=== PATIENT | male | born 1960 | race Caucasian/White ===

== ENCOUNTER → 2017-12-15 | Outpatient (CLI) | payer MEDICARE, BC ==
--- NOTE | 2017-12-15 16:56 | KCIC ---
MRI right knee without contrast dated 12/15/2017 12:00 AM Indication: Right knee pain pain is located medially pain for couple of months history of prior surgery in 2000. Comparison: 06/29/2014. Technique: Routine multiplanar multisequence imaging performed. . Findings: Bone marrow signal is homogeneous. No marrow edema. Mild tricompartmental hypertrophic change with small marginal osteophytes. Thinning and surface irregularity of the articular cartilage throughout. There is full-thickness cartilage loss at the weightbearing surface medial femoral condyle. There is also full-thickness cartilage loss at the trochlear groove and near full-thickness cartilage loss at the patellar apex and lateral patellar facet. Small joint effusion. Small loose bodies at the anterior and posterior joint space measuring up to 5 mm. No significant popliteal cyst. Anterior cruciate and posterior cruciate ligaments intact. Medial and lateral collateral complexes intact. Iliotibial band, popliteus tendon and pes anserine complex within normal limits. Quadriceps and patellar tendon are intact. No abnormality of the medial or lateral retinaculum. There is blunted morphology of the free edge of the medial meniscal body. Anterior horn and posterior horn are otherwise intact. Lateral meniscus is normal in morphology and signal. IMPRESSION: 1. 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 There is full-thickness cartilage loss at the medial and anterior compartments. This has mildly progressed from the prior exam. 2. Small joint effusion with multiple loose bodies in the anterior and posterior joint space. 3. Blunting of the free edge of the medial meniscal body is unchanged from prior exam and likely related to prior partial meniscectomy. Electronically signed by: Reymundo Harper MD (12/15/2017 4:53 PM) [facility]
== END | disposition home or self-care (01) ==
LOC: KCIC MRI 15:33
PROVIDERS: ATTEND Orthopaedic Surgery
DX: M17.11 Unilateral primary osteoarthritis, right knee (principal); M94.261 Chondromalacia, right knee; M24.08 Loose body, other site; M25.461 Effusion, right knee
CPT/HCPCS: 73721

== ENCOUNTER → 2020-05-02 | Outpatient (CLI) | payer BC, MEDICARE ==
[~2020-05-02] MED LIST: ATOR40TA59 PO; CITA20TA6 PO; DOCU-109 PO; FEBU80TA2 PO; HYDR-2759 PO; LEVO112T49 PO; LISI20TA18 PO; METH-38 PO; MULT-496 PO
[2020-05-02 10:00] LABS: ALBUMIN 3.6 g/dL (3.4-5.0); ALBUMIN/GLOBULIN RATIO 1.1 (1.0-1.7); CALCIUM 8.4 mg/dL (8.5-10.1); GFR 76.2; POTASSIUM 4.2 mmol/L (3.5-5.1); TOTAL BILIRUBIN 0.3 mg/dL (0.2-1.0); TOTAL PROTEIN 6.8 g/dL (6.4-8.2)
[2020-05-02 10:17] LABS: BASO % 1 % (0-3); EOS # 0.1 x10^3/uL (0.0-0.7); EOS % 3 % (0-3); HEMATOCRIT 37.3 % (39.0-53.0); HEMOGLOBIN 12.8 g/dL (13.0-17.5); LYMPH # 1.5 x10^3/uL (1.0-4.8); LYMPH % 25 % (24-48); MEAN CORPUSCULAR HEMOGLOBIN 32 pg (25-35); MEAN CORPUSCULAR HGB CONC 34 g/dL (31-37); MEAN CORPUSCULAR VOLUME 94 fL (79-100); MONO # 0.6 x10^3/uL (0.0-1.1); MONO % 10 % (0-9); NEUT # 3.6 x10^3/uL (1.8-7.7); NEUT % 62 % (31-73); PLATELET COUNT 281 x10^3/uL (140-400); RED BLOOD COUNT 3.97 x10^6/uL (4.30-5.70); RED CELL DISTRIBUTION WIDTH 13.3 % (11.5-14.5); WHITE BLOOD COUNT 5.8 x10^3/uL (4.0-11.0)
== END ==
LOC: SURGPAT 08:56
PROVIDERS: ATTEND Neurological Surgery
DX: Z01.812 Encounter for preprocedural laboratory examination (principal); M48.062 Spinal stenosis, lumbar region with neurogenic claudication; M71.30 Other bursal cyst, unspecified site; Z20.822 Contact with and (suspected) exposure to COVID-19; Z79.899 Other long term (current) drug therapy
CPT/HCPCS: 80053; 85025; 87641; U0003

== ENCOUNTER 2020-05-08 10:21 | Day surgery (SDC) | payer MEDICARE ==
[~2020-05-08] VITALS: Ht 177.8 cm; Wt 88.5 kg
--- NOTE | 2020-05-08 06:44 | HP ---
ADMIT DATE: 05/08/2020 DATE OF ADMISSION: 05/08/2020 HISTORY OF PRESENT ILLNESS: The patient is a pleasant 59-year-old man who is having difficulty with low back pain, which is greater on the right side and pain that can radiate into his right greater than left lower extremity. The problem started several months ago spontaneously. His pain varies between 4/10 and 10/10. Mornings and increased activity makes his pain worse. Standing helps. He is taking ibuprofen. He has tried stretches and had a steroid injection without benefit. PAST MEDICAL HISTORY: Gout, hypertension, thyroid disease. CURRENT MEDICATIONS: Lisinopril, levothyroxine, citalopram. PAST SURGICAL HISTORY: Right knee surgery, right rotator cuff surgery. FAMILY HISTORY: Cancer, diabetes, hypertension. SOCIAL HISTORY: Retired stage electrician. Drinks four beers daily. ALLERGIES: CODEINE. REVIEW OF SYSTEMS: A 12-point review of systems was performed and is noncontributory except that mentioned above. PHYSICAL EXAMINATION: GENERAL: Alert, pleasant, in no acute distress. HEAD: Normocephalic, atraumatic. SKIN: Warm and dry. MUSCULOSKELETAL: Lumbar paraspinal muscle bulk is normal, restricted range of motion of the lumbar spine, [id number] tenderness of the lower lumbar spine with palpation, normal range of motion of the lower extremities bilaterally. EXTREMITIES: No clubbing, cyanosis or edema. NEUROLOGIC: Alert and oriented x 3, strength 5/5 in bilateral lower extremities, sensory was intact to light touch in the bilateral lower extremities, reflexes were present and symmetric in the lower extremities bilaterally, negative straight leg raising bilaterally, normal gait. IMAGING: I reviewed a lumbar MRI scan. On that study, there appears to be a synovial cyst based on the right side at L4-L5, which protruded into the spinal canal and is associated with severe spinal stenosis. ASSESSMENT AND PLAN: He has severe lumbar spinal stenosis from a synovial cyst at L4-L5. I recommended a right direct laminectomy with removal of the cyst. I spoke with him about the surgery including the technique, the risk and the expected postoperative course. He understands. He would like to go ahead. Also, a 12-point review of systems was performed and was noncontributory except that mentioned above. JAMES P. IRAIS, MD DR: STUART/deanna JOB#: [id number] / [id number]
[~2020-05-08 10:21] MED LIST changes: +BACITRACIN 50,000 UNIT in IV NORMAL SALINE 1000ML BAG 1,000 ML IRR ONE; +BUPIVACAINE-EPI 0.5%-1:200000 MPF 30 ML VIAL. ONE; -DOCU-109 PO; +GELATIN SPONGE SIZE 100. ONE; -HYDR-2759 PO; +HYDROmorphone 2 MG/ML VIAL IVP PRN; +IV RINGERS,LACTATED 1000ML 1,000 ML IV SCH; +KETOROLAC 60 MG/2 ML VIAL. ONE; +LIDOCAINE 2% PF 5 ML VIAL. ONE; -METH-38 PO; +MORPHINE SULFATE 2 MG/ML VIAL. IVP PRN; +PROCHLORPERAZINE 10 MG/2 ML VIAL. IVP PRN; +PROPOFOL 10 MG/ML (20ML) VIAL. IV ONE; +ROCURONIUM 50 MG/5 ML VIAL. ONE; +SUCCINYLCHOLINE 200 MG/10 ML VIAL. ONE; +THROMBIN TOPICAL 20,000 UNIT SPRAY.SYRN KIT TP ONE; +fentaNYL PF VIAL 100 MCG/2 ML VIAL IVP PRN; +fentaNYL PF VIAL 100 MCG/2 ML VIAL ONE
[2020-05-08] MEDS ORDERED: REMIFENTANIL 1 MG VIAL. IV ONE ×2 (11:28→14:44)
[2020-05-08] MEDS ORDERED: 0.9 % SODIUM CHLORIDE 20 ML VIAL. IJ ONE (11:28)
[2020-05-08] MEDS ORDERED: DEXAMETHASONE SOD PHOS 4 MG/ML VIAL ONE (13:04)
[2020-05-08] MEDS ORDERED: ONDANSETRON PF 4 MG/2 ML VIAL. ONE (13:04)
[2020-05-08] MEDS ORDERED: PHENYLEPHRINE in 0.9% NACL PF 1 MG/10 ML SYRINGE. IV ONE (13:22)
[2020-05-08] MEDS ORDERED: ePHEDrine PF IN SALINE 50 MG/10 ML SYRINGE. IV ONE (13:22)
[2020-05-08] MEDS ORDERED: NEOSTIGMINE METHYLSULFATE 5 MG/5 ML SYRINGE. ONE (14:31)
[2020-05-08] MEDS ORDERED: GLYCOPYRROLATE 1 MG/5 ML VIAL. ONE (14:31)
[2020-05-08] MEDS ORDERED: PROPOFOL 50 ML IV ONE ×2 (14:51→14:52)
[2020-05-08] MEDS ORDERED: METH-38 PO (15:47)
[2020-05-08] MEDS ORDERED: DOCU-109 PO (15:47)
[2020-05-08] MEDS ORDERED: HYDR-2759 PO (15:47)
--- NOTE | 2020-05-08 15:49 | DISCH ---
DISCHARGE INSTRUCTIONS Condition on Discharge Condition on Discharge: Stable Activity After Discharge Activity Instructions for Disc: Activity as tolerated, Avoid exertion Other activity instructions: no driving for a week Bathing Instructions: Shower-keep dressing dry Lifting Instructions after Dis: No heavy lifting, No pulling or pushing, Do not lift >10 pounds Diet after Discharge Additional Diet Restrictions: resume home diet Wound Incision Care Wound/Incision Care: Ice to area for comfort Other wound/incision instructi: may remove dressing in 48 hours if dry then may shower, no soaking Contacting the after DC Call your doctor for: Concerns you may have Follow-Up Follow up with: Dr. Braxton's nurse in 2 weeks [phone] JAMES BRAXTON MD May 08, 2020 15:49
[2020-05-08] MEDS ORDERED: fentaNYL PF VIAL 100 MCG/2 ML VIAL ONE (15:51)
[2020-05-08] MEDS: fentaNYL PF VIAL 100 MCG/2 ML VIAL IVP PRN ×2 (15:56→16:19)
[2020-05-08] MEDS ORDERED: HYDROcodone/APAP 5/325MG 1 TAB TABLET PO ONE (16:30)
--- NOTE | 2020-05-08 16:30 | OP ---
DATE OF SURGERY: 05/08/2020 PREOPERATIVE DIAGNOSES: Synovial cyst with severe spinal stenosis at L4-L5, with right lumbar radiculopathy. POSTOPERATIVE DIAGNOSES: Synovial cyst with severe spinal stenosis at L4-L5, with right lumbar radiculopathy. OPERATION PERFORMED: Right direct laminectomy at L4-L5 with removal of synovial cyst and decompression of dura and nerve root. Operation was done with EMG monitoring, SSEP monitoring, fluoroscopy, microscopic dissection. SURGEON: Brad Braxton M.D. EQUIPMENT INSTALLER: STEVE Harris assisted with the surgery. She assisted with the exposure, the microdecompression and removal of synovial cyst as well as the closure. OPERATIVE INDICATIONS: The patient is a pleasant 59-year-old who developed severe back and bilateral leg pain, worse at the right side. He was found to have the above-mentioned findings. I recommended lumbar microsurgery to remove the synovial cyst. He understood the surgery, the risks, technique and expected postoperative course and wished to go ahead. DESCRIPTION OF PROCEDURE: Following general endotracheal anesthesia, the patient was positioned prone on the Josemanuel table. Lumbar region prepped and draped in a standard fashion. MARLO hose and AV impulse boots were applied for DVT prophylaxis. A microscope was draped. Fluoroscopy was draped and brought into the field. Monitoring was established. Ancef 2 grams was given less than 1 hour prior to initiation of the surgery. Using fluoroscopic guidance, incision was made directly over the L4-L5 interspace. I dissected down through skin and subcutaneous tissue. I reflected the paraspinal muscles and placed a [place] micro disc retractor. I brought in the microscope and using microscopic technique, I cleared away the thickened connective tissue overlying the lamina and exposed the lamina of L4 and L5. I brought in the high speed air drill, I burred down a generous hemilaminotomy and I tilted the patient away and worked medially quite far until I reached the midline and just over. Then, I began to peel above the very thickened ligamentum flavum and I used a 90-degree Kerrison to assist with that and then I worked from medial to lateral. Initially, the ligament was easily freed up from the dura, but as we reached about a [address] down laterally on the right side, the dura was densely adherent to the ligament i.e. Synovial cyst and I began to work superiorly and inferiorly until I surrounded the scarred thick attachment and then began to gently peel this away. As I worked, I had an excellent decompression. However, the cyst was densely adherent and it took a great deal of microscopic dissection to free this, but it was done without any major difficulties. Subsequently, there was no injury to the underlying dura. Following this, then I had an excellent decompression. I explored carefully, the region was very well decompressed. I sent specimens which included obvious synovial cyst material for pathologic evaluation. I irrigated copiously. Hemostasis had been excellent. I then removed the retractor, obtained hemostasis in the muscle. I closed the wound in layers with absorbable suture. The skin was closed with 4-0 subcuticular stitch. I felt the surgery went very well. BRAD BRAXTON MD DR: BONNIE/deanna JOB#: [id number] / [id number] MATT
[2020-05-08 16:35] VITALS: BP 126/65
--- NOTE | 2020-05-14 14:08 | PATHOLOGY ---
[facility] Accession Number: [id number] . 01 Material submitted: . vertebral column - LUMBAR DECOMPRESSION AND SYNOVIAL CYST . 01 Clinical history: . LUMBAR STENOSIS SYNOVIAL CYST REMOVAL SYNOVIAL CYST LUMBAR LAMINECTOMY L4-5 . 02 Diagnosis: Segments of fibrocartilaginous, fibroadipose, skeletal muscle, and synovial tissue and bone, lumbar decompression and synovial cyst removal: - Degenerative changes of fibrocartilaginous tissue. - Segments of synovial tissue consistent with synovial cyst. ([facility] 05/14/2020) [facility] 05/14/2020 0929 Local . 02 Comment: There is no evidence of an acute inflammatory process or malignancy. ([facility] 05/14/2020) . 02 Electronically signed: . Gabino Garcia MD, Pathologist NPI- [id number] . 01 Gross description: . The specimen is received in formalin, labeled "Derek Carreon, lumbar decompression and synovial cyst". Received are multiple segments of pink-swann gritty material admixed with small fragments of bone measuring 4.3 x 3.2 x 0.9 cm in aggregate dimensions. Synovial tissue is not grossly identified upon filtration and inspection of the specimen container. The specimen is submitted representatively in cassette A1, following light decalcification. (CAA; 05/12/2020) Q[facility]/QAC 05/12/2020 1743 Local . 02 Pathologist provided ICD-10: M51.36 . 02 CPT . 318093, [id number] Specimen Comment: A courtesy copy of this report has been sent to [phone] Specimen Comment: Report sent to Performed at: 01 [facility] [address], [place] [id number] MD Jarek Porras MD Phone: [phone] Performed at: [address] [id number] MD Gabino Garcia MD Phone: [phone]
== END 2020-05-08 17:42 | disposition home or self-care (01) ==
LOC: SURG 10:21
PROVIDERS: ATTEND Neurological Surgery
DX: M48.061 Spinal stenosis, lumbar region without neurogenic claudication (principal); M71.30 Other bursal cyst, unspecified site; M54.16 Radiculopathy, lumbar region; E78.00 Pure hypercholesterolemia, unspecified; I10 Essential (primary) hypertension; M19.90 Unspecified osteoarthritis, unspecified site; M10.9 Gout, unspecified; E03.9 Hypothyroidism, unspecified; F32.9 Major depressive disorder, single episode, unspecified; Z87.891 Personal history of nicotine dependence; Z79.899 Other long term (current) drug therapy; Z98.890 Other specified postprocedural states; Z88.5 Allergy status to narcotic agent; Z88.8 Allergy status to other drugs, medicaments and biological substances
CPT/HCPCS: 63267; 88304; 88311; 97116; 97162; 97530; A4213; A4364; A4930; A6254; A6258; J0330; J0690; J1100; J1885; J2370; J2405; J2704; J2710; J3010; J3490; J7030; 76000; A4222

== ENCOUNTER → 2020-08-06 | Outpatient (CLI) | payer MEDICARE ==
[~2020-08-06] MED LIST changes: -BACITRACIN 50,000 UNIT in IV NORMAL SALINE 1000ML BAG 1,000 ML IRR ONE; -BUPIVACAINE-EPI 0.5%-1:200000 MPF 30 ML VIAL. ONE; +DOCU-109 PO; +GADOTERATE 7.5 MMOL/15ML VIAL. IVP ONE; -GELATIN SPONGE SIZE 100. ONE; +HYDR-2759 PO; -HYDROmorphone 2 MG/ML VIAL IVP PRN; -IV RINGERS,LACTATED 1000ML 1,000 ML IV SCH; -KETOROLAC 60 MG/2 ML VIAL. ONE; -LIDOCAINE 2% PF 5 ML VIAL. ONE; +METH-38 PO; -MORPHINE SULFATE 2 MG/ML VIAL. IVP PRN; -PROCHLORPERAZINE 10 MG/2 ML VIAL. IVP PRN; -PROPOFOL 10 MG/ML (20ML) VIAL. IV ONE; -ROCURONIUM 50 MG/5 ML VIAL. ONE; -SUCCINYLCHOLINE 200 MG/10 ML VIAL. ONE; -THROMBIN TOPICAL 20,000 UNIT SPRAY.SYRN KIT TP ONE; -fentaNYL PF VIAL 100 MCG/2 ML VIAL IVP PRN; -fentaNYL PF VIAL 100 MCG/2 ML VIAL ONE
--- NOTE | 2020-08-06 10:38 | KCIC ---
EXAM: Lumbar spine MRI without and with contrast. HISTORY: Radiculopathy. TECHNIQUE: Multiplanar, multisequence magnetic resonance imaging of the lumbar spine was performed wi thout and with contrast. COMPARISON: 05/03/2013 FINDINGS: There is minimal grade 1 anterolisthesis of L4 on L5, measuring 2 mm. There is degenerative endplate remodeling and disc desiccation predominantly at L3-L4 and L4-L5. There are few osseous hem angiomas. There is no fracture or suspicious osseous lesion. There is edema involving the left L4 and left greater than right L5 pedicles, likely degenerative or due to a stress reaction. The conus term inates at T12-L1. At L1-L2 and L2-L3, there is no stenosis. At L3-L4, there is a left extraforaminal to lateral disc protrusion superimposed on a disc bulge and endplate remodeling. There is mild bilateral facet arthropathy. There is prominent dorsal epidural fa t. There is mild left greater than right foraminal stenosis and abutment the exiting left L3 nerve ro ot. There is mild central canal stenosis. At L4-L5, there are right hemilaminectomy changes. There is a fluid collection within the laminectomy decompression space and along the right aspect of the L4 spinous process measuring approximately 3.2 cm x 0.9 cm, likely due to a postoperative seroma. There is surrounding scar/granulation tissue. The re is a right foraminal to extra foraminal disc protrusion and left extra foraminal disc protrusion s uperimposed on a disc bulge and right lateral predominant endplate osteophytosis. There is severe irene ateral facet arthropathy. There is prominent dorsal epidural fat. There is grade 1 anterolisthesis. T here is moderate right and mild left foraminal stenosis with abutment of the exiting right L4 nerve r oot. There is mild central canal stenosis. At L5-S1, there is no stenosis. IMPRESSION: 1. L4-L5: Interval right hemilaminectomy changes, with associated postoperative seroma within the guzman inectomy decompression space and along the L4 spinous process. This exerts no mass effect on the thec al sac. There are right foraminal to extra foraminal and left extraforaminal disc protrusion superimp osed on a disc bulge, right lateral predominant endplate osteophytosis and severe facet arthropathy a t this level, contributing to moderate right and mild left foraminal stenosis with abutment of the ex iting right L4 nerve root. There is also mild central canal stenosis at this level. 2. L3-L4: Left extraforaminal to lateral disc protrusion superimposed on a disc bulge, endplate remod eling and facet arthropathy, contributing to mild left greater than right foraminal stenosis, abutmen t of the exiting left L3 nerve root and mild central canal stenosis. 3. Edema within the left L4 and left greater than right L5 pedicles, likely degenerative or due to st ress reaction. No fracture is seen. Electronically signed by: Pilar Archer MD (08/06/2020 10:36 AM) [id number]
== END ==
LOC: KCIC MRI 08:54
PROVIDERS: ATTEND Neurological Surgery
DX: M47.816 Spondylosis without myelopathy or radiculopathy, lumbar region (principal); M43.16 Spondylolisthesis, lumbar region; M48.061 Spinal stenosis, lumbar region without neurogenic claudication
CPT/HCPCS: 72158; 82565; A9575